=== PATIENT | male | born 1990 | race Caucasian/White ===

== ENCOUNTER 2023-01-22 22:05 | Emergency (ER) | payer SELFPAY ==
[~2023-01-22] VITALS: Ht 157.4 cm; Wt 65.8 kg
[2023-01-22 22:55] LABS: HEMATOCRIT 42.5 % (42.0-52.0); MEAN CELL VOLUME 79.7 fl (80.0-94.0); MEAN CORPUSCULAR HGB 26.3 pg (27.0-31.0); MEAN CORPUSCULAR HGB CONC 32.9 g/dl (33.0-37.0); MEAN PLATELET VOLUME 10.3 fl (9.6-12.3); PLATELET COUNT AUTOMATED 270 10*3/uL (130-400); RED BLOOD COUNT 5.33 10*6/uL (4.50-5.90); RED CELL DISTRI WIDTH 12.7 % (0-14.5)
[2023-01-22 22:56] LABS: MANUAL DIFF REFLEX YES
[2023-01-22 23:16] LABS: ALKALINE PHOSPHATASE 116 U/L (46-116); BUN 15 mg/dl (9-23); CHLORIDE 102 mmol/L (98-107); LIPASE 42 U/L (12-53); SGPT/ALT 20 U/L (10-49); TOTAL PROTEIN 7.9 gm/dL (6.0-8.0)
[2023-01-22 23:20] LABS: PLATELET SUFFICIENCY NORMAL (NORMAL); TOTAL CELLS COUNTED 100 #CELLS
[2023-01-23] MEDS ORDERED: ONDANSETRON4 MG SL (00:49)
== END 2023-01-23 00:44 | disposition home or self-care (01) ==
LOC: ED 22:05
PROVIDERS: Internal Medicine
DX: K52.9 Noninfective gastroenteritis and colitis, unspecified (principal); Z88.5 Allergy status to narcotic agent; Z20.822 Contact with and (suspected) exposure to COVID-19

== ENCOUNTER 2023-12-18 23:36 | Emergency (ER) | payer OTHER ==
[~2023-12-18] VITALS: Ht 160 cm; Wt 62.6 kg
[~2023-12-18 23:36] MED LIST: ONDANSETRON4 MG SL
[2023-12-18] MEDS ORDERED: Ondansetron Hydrochloride 4 MG TAB SL ONE (23:55)
[2023-12-19] MEDS ORDERED: MEDROL DOSEPAK4 MG PO (01:29)
[2023-12-19] MEDS ORDERED: Ondansetron4 MG PO (01:29)
[2023-12-19] MEDS ORDERED: AVPAK AZITHROM250 M1 PO (01:29)
== END 2023-12-19 01:34 | disposition home or self-care (01) ==
LOC: ED 23:36
DX: J40 Bronchitis, not specified as acute or chronic (principal); Z20.822 Contact with and (suspected) exposure to COVID-19; Z88.8 Allergy status to other drugs, medicaments and biological substances; Z87.891 Personal history of nicotine dependence

== ENCOUNTER 2024-05-08 06:50 | Emergency (ER) | payer SELFPAY ==
[~2024-05-08] VITALS: Wt 64.4 kg
[~2024-05-08 06:50] MED LIST changes: +AVPAK AZITHROM250 M1 PO; +MEDROL DOSEPAK4 MG PO; +Ondansetron4 MG PO
[2024-05-08] MEDS ORDERED: Ketorolac Tromethamine 30 MG/ML VIAL IM ONE (07:20)
[2024-05-08] MEDS ORDERED: Ondansetron Hydrochloride 4 MG TAB PO ONE (07:25)
[2024-05-08] MEDS ORDERED: ACETAMINOPHEN 325 MG TAB PO ONE (07:25)
[2024-05-08] MEDS ORDERED: BENZONATATE100 M1 PO (08:33)
[2024-05-08] MEDS ORDERED: Ondansetron4 MG PO (08:33)
== END 2024-05-08 08:35 | disposition home or self-care (01) ==
LOC: ED 06:50
DX: J11.1 Influenza due to unidentified influenza virus with other respiratory manifestations (principal); R11.2 Nausea with vomiting, unspecified; Z88.6 Allergy status to analgesic agent; Z79.899 Other long term (current) drug therapy; Z79.2 Long term (current) use of antibiotics

== ENCOUNTER 2025-04-10 07:37 | Emergency (ER) | payer OTHER ==
[~2025-04-10] VITALS: Ht 157.4 cm; Wt 67.1 kg
[~2025-04-10 07:37] MED LIST changes: +BENZONATATE100 M1 PO
[2025-04-10] MEDS ORDERED: ACETAMINOPHEN 325 MG TAB PO ONE (08:00)
[2025-04-10] MEDS ORDERED: Ondansetron Hydrochloride 4 MG TAB SL SCH (08:00)
[2025-04-10] MEDS ORDERED: Ondansetron4 MG PO (09:01)
== END 2025-04-10 09:04 | disposition home or self-care (01) ==
LOC: ED 07:37
DX: U07.1 COVID-19 (principal); Z88.5 Allergy status to narcotic agent